=== PATIENT | female | born 1970 | race Caucasian/White ===

== ENCOUNTER 2023-01-11 20:26 | Emergency (ER) | payer OTHER ==
[2023-01-11] MEDS ORDERED: Bacitracin Oint 1 GM U/D Packet TOP ONE (21:50)
== END 2023-01-11 22:04 | disposition home or self-care (01) ==
LOC: JP.ED 20:26
DX: S71.111A Laceration without foreign body, right thigh, initial encounter (principal); W26.8XXA Contact with other sharp object(s), not elsewhere classified, initial encounter
CPT/HCPCS: 12001; 99282